=== PATIENT | female | born 1980 | race Caucasian/White ===

== ENCOUNTER 2017-08-20 19:23 | Emergency (ER) | payer BC, OTHER ==
[2017-08-20 19:24] VITALS: BMI 24.4
--- NOTE | 2017-08-20 19:38 | ED PDOC ---
Arrival/HPI - General Time Seen by Provider: 08/20/17 19:34 Historian: Patient - History of Present Illness Narrative History of Present Illness (Text): 08/20/17 19:34 36 y/o female, pmh including asthma and colitis, , LMP 06/20/2017, allergic to sulfa, c/o pelvic pain and an episode of vaginal bleeding x 1 hour without fall or trauma. Pt. stated that she was at home, wiping herself, noted to have an episode of bright red clot as small piece, associated with pelvic pain, no vaginal discharge other than clot, no numbness or tingling, no palpitation, no night sweat, no dizziness, no change in vision, no other medical or psychological complaints. Past Medical History - Provider Review Nursing Documentation Reviewed: Yes - Tetanus Immunization Tetanus Immunization: Unknown - Pulmonary Hx Asthma: Yes - Psychiatric Hx Depression: No Hx Emotional Abuse: No Hx Physical Abuse: No Hx Substance Use: No - Past Surgical History Past Surgical History: No Previous - Suicidal Assessment Feels Threatened In Home Enviroment: No Family/Social History - Physician Review Nursing Documentation Reviewed: Yes Family/Social History: Unknown Family HX Hx Alcohol Use: No Hx Substance Use: No Hx Substance Use Treatment: No Allergies/Home Meds Allergies/Adverse Reactions: Allergies Sulfa (Sulfonamide Antibiotics) Adverse Reaction (Verified 08/20/17 19:37) RASH Review of Systems - Review of Systems Constitutional: absent: Fatigue, Fevers Eyes: absent: Vision Changes ENT: absent: Hearing Changes Respiratory: absent: SOB, Cough Cardiovascular: absent: Chest Pain Gastrointestinal: absent: Abdominal Pain, Nausea, Vomiting Genitourinary Female: Vaginal Bleeding, Other (pelvic pain) Skin: absent: Rash, Pruritis Neurological: absent: Headache, Dizziness Psychiatric: absent: Anxiety, Depression Physical Exam Vital Signs Temp Pulse Resp BP Pulse Ox 08/20/17 22:07 79 18 128/74 98 08/20/17 19:54 98.2 F 08/20/17 19:34 88 19 131/84 100 Pain Distress: Mild - Systems Exam Head: Present: Atraumatic, Normocephalic Pupils: Present: PERRL Extroacular Muscles: Present: EOMI Conjunctiva: Present: Normal Mouth: Present: Moist Mucous Membranes Neck: Present: Normal Range of Motion Respiratory/Chest: Present: Clear to Auscultation, Good Air Exchange. No: Respiratory Distress, Accessory Muscle Use Cardiovascular: Present: Regular Rate and Rhythm, Normal S1, S2. No: Murmurs Abdomen: No: Tenderness, Distention, Peritoneal Signs, Rebound, Guarding Genitourinary/Pelvic Exam: Present: Normal External Genitalia, Cervical os Closed, Other (Female Honing Machine Operator Tool: SENIOR CENTER MANAGERKASIE Suarez). No: Vaginal Discharge, Vaginal Bleeding, Vaginal Lesions, Adenexal Tenderness, Adenexal Mass, Cervical Motion Tendernes, Odor Back: Present: Normal Inspection Upper Extremity: Present: Normal Inspection. No: Cyanosis, Edema Lower Extremity: Present: Normal Inspection. No: Edema Neurological: Present: GCS=15, CN II-XII Intact, Speech Normal Skin: Present: Warm, Dry, Normal Color. No: Rashes Psychiatric: Present: Alert, Oriented x 3, Normal Insight, Normal Concentration Medical Decision Making ED Course and Treatment: 08/20/17 19:44 Differential: Threatened vs. UTI vs. anemia -labs/ua -transvaginal sonogram -tylenol -observe and reassess 08/20/17 22:19 -Blood type A+-Sonogram show Findings consistent with presence of demise. Consider serial hCG follow-up and repeat ultrasound in one or 2 weeks as clinically warranted. -Labs are non-significant -Beta hcg is 4495 with no previous comparison -UA show +UTI, macrobid ordered -Pain resolved, all labs and radiology study explained to the patient and mother. -I spoke to the obgyn ad operations coordinator, Dr. Rodriguez, discussed about the case/labs/radiology result, suggest to discharge home and follow up with the obgyn next week. Pt. has her own obgyn. -Discharge home with macrobid, tylenol, your beta hcg is 4495, follow up with your own pmd and obgyn within 2-3 days, return to the ER for any new or worsening signs or symptoms. - Lab Interpretations Lab Results: 08/20/17 20:00 08/20/17 20:00 Lab Results 08/20/17 20:00: Blood Type A POSITIVE, Antibody Screen Pending, BBK History Checked No verified bt 08/20/17 20:00: WBC 9.6, RBC 4.78, Hgb 12.5, Hct 37.9, MCV 79.3 L, MCH 26.2, MCHC 33.0, RDW 13.0, Plt Count 345, MPV 9.8, Gran % 62.7, Lymph % (Auto) 23.8, [place] % (Auto) 8.5 H, Eos % (Auto) 4.9, Baso % (Auto) 0.1, Gran # 5.99, Lymph # ( Auto) 2.3, Ector # (Auto) 0.8 H, Eos # (Auto) 0.5, Baso # (Auto) 0.01 08/20/17 20:00: Beta HCG, Quant 4495.90 H 08/20/17 20:00: Sodium 141, Potassium 3.8, Chloride 99, Carbon Dioxide 30, Anion Gap 15, BUN 13, Creatinine 0.7, Est GFR ( Amer) > 60, Est GFR (Non- Af Amer) > 60, Random Glucose 93, Calcium 9.0, Total Bilirubin 0.2, AST 27, ALT 36, Alkaline Phosphatase 40, Total Protein 8.0, Albumin 4.7, Globulin 3.3, Albumin/Globulin Ratio 1.4 08/20/17 20:00: Urine Color Yellow, Urine Appearance Slight-cloudy, Urine pH 8.0 , Ur Specific [place] 1.010, Urine Protein 30 H, Urine Glucose (UA) Negative, Urine Ketones Trace H, Urine Blood Large H, Urine Nitrate Negative, Urine Bilirubin Negative, Urine Urobilinogen 4.0 H, Ur Leukocyte Esterase Trace H, Urine RBC 5 - 10, Urine WBC 2 - 5, Ur Epithelial Cells 3 - 4, Urine Bacteria Trace - RAD Interpretation Radiology Orders: 08/20/17 19:39 OB TRANSVAGINAL [US] Stat No relevant prior studies available. FINDINGS: Gestation: Intrauterine gestational sac 1.8 cm 6 weeks 1 day. Yolk sac is 4.3 mm. pole is 1.4 cm, 7 weeks 5 days. No heart tones are detected. Placenta/amniotic fluid: Cannot be adequately evaluated due to the early gestational age. Uterus/cervix: The uterus is 9.3 cm. The cervix is 3.2 cm. Small nabothian cysts. Cervix is slightly dilated with the lumen measuring 3 mm. No myometrial mass. Ovaries: Right ovary is 2.5 cm. Left ovary is 2.1 cm. No mass. Free fluid: No free fluid. IMPRESSION: Findings consistent with presence of demise. Consider serial hCG follow- up and repeat ultrasound in one or 2 weeks as clinically warranted. Thank you for allowing us to participate in the care of your patient. Dictated and Authenticated by: Tin Rodriguez MD 08/20/2017 9:35 PM Eastern Time ([place] & [place]) Poolroom/Poolhall Manager: Radiologist - Medication Orders Current Medication Orders: Discontinued Medications Acetaminophen (Tylenol 325mg Tab) 650 mg PO STAT STA Stop: 08/20/17 19:40 Last Admin: 08/20/17 21:00 Dose: 650 mg Nitrofurantoin Macrocrystals (Macrobid) 100 mg PO STAT STA PRN Reason: Protocol Stop: 08/20/17 21:27 Last Admin: 08/20/17 21:34 Dose: 100 mg - PA / PATTERNMAKER HAND / Resident Statement / has reviewed & agrees with the documentation as recorded. Disposition/Present on Arrival - Present on Arrival Any Indicators Present on Arrival: No History of DVT/PE: No History of Uncontrolled Diabetes: No Urinary Catheter: No History of Decub. Ulcer: No History Surgical Site Infection Following: None - Disposition Have Diagnosis and Disposition been Completed?: Yes Diagnosis: , Vaginal bleeding, UTI (urinary tract infection), demise Disposition: HOME/ ROUTINE Disposition Time: 19:45 Patient Plan: Discharge Patient Problems: Current Active Problems Problem Status Onset demise Acute Acute UTI (urinary tract infection) Acute Vaginal bleeding Acute Condition: GOOD Additional Instructions: Discharge home with macrobid, tylenol, your beta hcg is 4495, follow up with your own pmd and obgyn within 2-3 days, return to the ER for any new or worsening signs or symptoms. Prescriptions: Acetaminophen [Tylenol 325mg tab] 2 tab PO QID PRN #30 tab PRN Reason: Other Nitrofurantoin Macrocrystals [Macrobid] 100 mg PO BID #14 cap Referrals: Sarai Wills MD [Primary Care Provider] - Follow up with primary Dieter Rodriguez DO [Staff Provider] - Follow up with primary Forms: WORK NOTE
[2017-08-20 19:54] VITALS: TEMP 98.2
[2017-08-20 20:27] LABS: BASO # 0.01 K/mm3 (0.0-2.0); BASO % 0.1 % (0.0-3.0); EOS # 0.5 (0.0-0.7); EOS % 4.9 % (1.5-5.0); GRAN # 5.99 (1.4-6.5); GRAN % 62.7 % (50.0-68.0); HEMOGLOBIN 12.5 g/dL (12.0-16.0); LYMPH # 2.3 (1.2-3.4); LYMPH % 23.8 % (22.0-35.0); MEAN CELL VOLUME 79.3 fl (80.0-105.0); MEAN CORPUSCULAR HEMOGLOBIN 26.2 pg (25.0-35.0); MEAN PLATELET VOLUME 9.8 fl (7.0-11.0); MONO # 0.8 (0.1-0.6); MONO % 8.5 % (1.0-6.0); RBC 4.78 10^6/uL (3.5-6.1); WHITE BLOOD COUNT 9.6 10^3/ul (4.5-11.0)
[2017-08-20 20:33] LABS: URINE APPEARANCE SLIGHT-CLOUDY (CLEAR); URINE BILIRUBIN NEGATIVE (NEGATIVE); URINE BLOOD LARGE (NEGATIVE); URINE COLOR YELLOW (YELLOW); URINE GLUCOSE (UA) NEGATIVE (NEGATIVE); URINE LEUKOCYTE ESTERASE TRACE Leu/uL (NEGATIVE); URINE PROTEIN 30 mg/dL (<30 mg/dL)
[2017-08-20 20:36] LABS: URINE BACTERIA TRACE (NEG)
[2017-08-20 20:39] LABS: ALB/GLOB RATIO 1.4 (1.1-1.8); ALBUMIN 4.7 g/dL (3.0-4.8); ALT/SGPT 36 U/L (7-56); AST/SGOT 27 U/L (14-36); BLOOD UREA NITROGEN 13 mg/dL (7-21); GFR AFRICAN-AMERICAN > 60; GFR NON-AFRICAN AMERICAN > 60
[2017-08-20 22:07] VITALS: O2SAT 98
[2017-08-20 22:27] VITALS: BP 120/74; PULSE 72; RESP 17
--- NOTE | 2017-08-21 14:31 | US ---
Date of service: 08/20/2017 PROCEDURE: OB Pelvic Ultrasound HISTORY: approx. 9 weeks preg, vaginal bleeding and pain 06/14/2017 LMP COMPARISON: None available. FINDINGS: UTERUS: Gestational sac: 6 weeks 1 day Gazelle-rump length 7 weeks 5 days Heart rate: No heart activity age (Ultrasound estimated): 7 weeks Caitie-gestational hemorrhage: None. Uterus measures 9.25 x 5.76 x 6.78 cm. Normal in size and appearance. CERVIX: Measures 3.28 cm. Long and closed. No cervical abnormality seen. Small nabothian cysts are seen RIGHT OVARY: Measures 2.45 x 1.06 x 1.11 cm. No mass lesion. Normal flow. LEFT OVARY: Measures 2.12 x 1.42 x 2.12 cm. No solid mass. Normal flow. FREE FLUID: None. OTHER FINDINGS: The report concurs with the preliminary [facility] report IMPRESSION: No evidence of heart activity. Findings consistent with demise. Consider serial HCG follow-up and repeat ultrasound in 1 or 2 weeks as clinically warranted
== END 2017-08-20 22:27 | disposition home or self-care (01) ==
LOC: ED 19:23
DX: O23.41 Unspecified infection of urinary tract in pregnancy, first trimester (principal); O20.9 Hemorrhage in early pregnancy, unspecified; O36.4XX0 Maternal care for intrauterine death, not applicable or unspecified; Z3A.01 Less than 8 weeks gestation of pregnancy